=== PATIENT | male | born 1975 | race African-American/Black ===

== ENCOUNTER 2016-03-10 11:15 | Emergency (ER) | payer SELFPAY ==
--- NOTE | 2016-03-10 13:13 | ERNOTE ---
Date of Service: 03/10/16 Time Seen by Provider: 03/10/16 12:46 Stated Complaint: COLD Presenting Symptoms:: cough, sore throat, runny nose, fever Source: patient, RN notes reviewed Exam Limitations: no limitations Immunizations: IMMUNIZATION HX History of Influenza Vaccine No Hx Pneumococcal Vaccination No Allergies/Adverse Reactions: Allergies No Known Allergies Allergy (Unverified 03/10/16 11:37) Home Medications: HOME MEDICATIONS Amox Tr/Potassium Clavulanate [Augmentin 875-125 Tablet] 875 mg PO Q12H #20 tab 03/10/16 [Last Taken Unknown] Promethazine HCl/Codeine [Prometh-Codein 6.25-10 mg/5 ml] 5 ml PO Q4H PRN #120 ml 03/10/16 [Last Taken Unknown] - History of Present Ilness Narrative: 40-year-old male ambulatory to the emergency department for upper respiratory symptoms that have been going on for some time. He reports initially becoming ill over a month ago. His symptoms improved after a while, but then returned and has been worse for the last few days. He's been taking [id number] cough and cold medications with some relief. He reports sick contacts at home and at work. He did not get a flu vaccine last fall. Timing: getting worse Severity: severe Frequency/Possible Cause: Reports: illness exposure Associated Symptoms: Reports: cough, facial pain, nasal congestion, nasal drainage, headache, sore throat, muscle aches, fever/chills. Denies: chest pain /soreness, shortness of breath, wheezing, dizziness, lightheadedness, earache Prior Treatment: Denies: recently seen Review of Systems - Review of Systems Constitutional: Present: See HPI EYE: Present: no symptoms reported ENT: Present: See HPI Respiratory: Present: See HPI Cardiology: Present: See HPI Gastrointestinal/Abdominal: Absent: nausea, vomiting, diarrhea Genitourinary: Present: no symptoms reported Musculoskeletal: Present: See HPI Skin: Present: no symptoms reported Neurological: Present: See HPI Endocrine: Present: no symptoms reported Hematologic/Lymphatic: Present: no symptoms reported Psych: Present: no symptoms reported - Patient's Past Medical History Patient History - Medical: GERD Patient History - Cardiac/Respiratory: No pertinent hx Patient History - Cancer: No Hx of Cancer Patient History - Surgical Procedures: Other - Social History Living Situations: home Smoking Status: Current every day smoker Cigarettes Packs Per Day: 0.2 Alcohol Use: none Drug Use: none - Immunizations Immunizations Up to Date: No Physical Exam - Physical Exam General Appearance: Present: wd/wn, alert, no apparent distress Eye Exam: Normal inspection: bilateral Ears, Nose, Throat: Present: hearing grossly normal, nasal congestion, sinus pain/drainage, pharyngeal erythema. Absent: abnormal TM (R), abnormal TM (L) Neck: Present: supple, tender lateral. Absent: lymphadenopathy (R), lymphadenopathy (L) Respiratory: Present: no respiratory distress, normal breath sounds, lungs clear Cardiovascular/Chest: Present: regular rate, rhythm, no murmur, normal peripheral pulses Neurological Exam: Present: alert, oriented, normal mood/affect, no motor/ sensory deficits Skin Exam: Present: normal color, warm/dry ED Progress - Results and Orders Patient's Lab Results:: I have reviewed the patient's lab results. - Vital Signs Patient's Vital Signs:: I have reviewed the patient's vital signs. Vital Signs: Vital Signs 03/10/16 03/10/16 11:30 12:30 Temperature 35.6 C L 36.3 C L Pulse Rate 74 73 Respiratory 12 16 Rate Blood Pressure 145/98 147/99 O2 Sat by Pulse 98 98 Oximetry - Progress/Reassessment Chief Complaint: Cough Progress:: Unchanged Departure - Departure Clinical Impression: Sinusitis, acute Qualifiers: Sinusitis location: unspecified location Recurrence: non-recurrent Qualified Code(s): J01.90 - Acute sinusitis, unspecified Disposition: Home self-care Condition: Stable Instructions: Sinusitis, Adult, [id number], Form - Excuse from Work, School, or Physical Activity Additional Instructions: Nasal saline as needed for congestion - can also try Sinus Rinse Kit twice a day Increase fluid intake Humidifier Tylenol and/or ibuprofen for pain/fever Finish all of you antibiotic prescription Prescriptions: Amox Tr/Potassium Clavulanate [Augmentin 875-125 Tablet] 875 mg PO Q12H #20 tab Promethazine HCl/Codeine [Prometh-Codein 6.25-10 mg/5 ml] 5 ml PO Q4H PRN #120 ml PRN Reason: Cough
[2016-03-10 14:12] VITALS: BP 146/98
== END 2016-03-10 14:21 | disposition home or self-care (01) ==
LOC: ER 11:15
DX: J01.90 Acute sinusitis, unspecified (principal); F17.210 Nicotine dependence, cigarettes, uncomplicated